=== PATIENT | female | born 1935 | race Caucasian/White ===

== ENCOUNTER 2018-04-09 14:24 | Emergency (ER) | payer MEDICARE, OTHER ==
[~2018-04-09] VITALS: Ht 152.4 cm; Wt 68.0 kg
[~2018-04-09 14:24] MED LIST: ADULT LOW DOSE81 MG PO; B12; CALCIUM 500 +1 EACH PO; CENTRUM SILVER1 EAC4; CIPRO250 M1 PO; FLOMAX0.4 MG PO; FOSAMAX5 MG PO; KRILL OIL 3001 EACH; LIPITOR40 MG PO; LORTAB 5 MG/5001 TAB PO; MEDROLDOSEPACK PO; NORCO 5-325 TA1 EACH PO; PYRIDIUM200 MG PO; ZOFRAN ODT4 MG PO
[2018-04-09] MEDS ORDERED: ZOCOR20 MG PO (14:39)
[2018-04-09] MEDS ORDERED: AUGMENTIN 875-1 EACH PO (15:01)
[2018-04-09] MEDS ORDERED: MEDROLDOSEPACK PO (15:01)
[2018-04-09 15:38] VITALS: BP 139/94
== END 2018-04-09 15:39 | disposition home or self-care (01) ==
LOC: M.ERS 14:24
DX: T78.49XA Other allergy, initial encounter (principal); N39.0 Urinary tract infection, site not specified; E78.00 Pure hypercholesterolemia, unspecified; Z87.440 Personal history of urinary (tract) infections; Z88.1 Allergy status to other antibiotic agents; X58.XXXA Exposure to other specified factors, initial encounter

== ENCOUNTER → 2018-05-02 | Outpatient (CLI) | payer MEDICARE, OTHER ==
[~2018-05-02] MED LIST changes: +AUGMENTIN 875-1 EACH PO; +HYDROCODON-ACE1 EAC7 PO; +ZOCOR20 MG PO
== END ==
LOC: M.RAD 08:35
DX: M85.89 Other specified disorders of bone density and structure, multiple sites (principal); M81.0 Age-related osteoporosis without current pathological fracture; Z78.0 Asymptomatic menopausal state

== ENCOUNTER 2018-06-26 07:49 | Emergency (ER) | payer MEDICARE, OTHER ==
[~2018-06-26] VITALS: Ht 152.4 cm; Wt 64.0 kg
[~2018-06-26 07:49] MED LIST changes: -HYDROCODON-ACE1 EAC7 PO
[2018-06-26 10:19] LABS: ABSOLUTE BASOPHILS 0.1 thou/uL (0.0-0.2); ABSOLUTE EOSINOPHILS 0.1 thou/uL (0.0-0.7); ABSOLUTE LYMPHOCYTES 0.8 thou/uL (0.8-5.3); ABSOLUTE MONOCYTES 0.5 thou/uL (0.0-1.2); ABSOLUTE NEUTROPHILS 5.8 thou/uL (1.6-8.1); BASOPHILS 0.8 %; HEMATOCRIT 34.3 % (37.0-47.0); HEMOGLOBIN 11.9 gm/dL (12.0-15.0); LYMPHOCYTES 10.6 %; MCH 32.9 pg (26.0-34.0); MCHC 34.7 g/dL (28.0-37.0); MCV 94.8 fL (80.0-100.0); MONOCYTES 7.3 %; MPV 8.1 fl. (7.2-11.1); NUCLEATED RBCS 0 /100WBC; PLATELET COUNT* 213 thou/uL (150-400); POLYS 80.3 %; RBC 3.62 mil/uL (4.20-5.00); RDW-CV 12.9 % (10.5-14.5); WBC 7.2 thou/uL (4.0-11.0)
[2018-06-26 10:29] LABS: CALCIUM 8.3 mg/dL (8.5-10.1); CREATININE 1.1 mg/dL (0.6-1.3); POTASSIUM 4.1 mmol/L (3.5-5.1)
[2018-06-26 10:34] LABS: ALBUMIN 3.3 g/dL (3.4-5.0); TOTAL BILIRUBIN 0.3 mg/dL (<0.1-1.0); TOTAL PROTEIN 6.4 g/dL (6.4-8.2)
[2018-06-26] MEDS ORDERED: HYDROCODON-ACE1 EAC7 PO (13:28)
[2018-06-26 13:48] VITALS: BP 162/84
== END 2018-06-26 13:49 | disposition home or self-care (01) ==
LOC: M.ERS 07:49
PROVIDERS: Emergency Medicine
DX: S42.001A Fracture of unspecified part of right clavicle, initial encounter for closed fracture (principal); E78.00 Pure hypercholesterolemia, unspecified; Z88.1 Allergy status to other antibiotic agents; W18.39XA Other fall on same level, initial encounter; Y93.89 Activity, other specified; Y92.89 Other specified places as the place of occurrence of the external cause; Y99.8 Other external cause status

== ENCOUNTER 2019-10-29 19:00 | Observation (INO) | payer MEDICARE, OTHER ==
[~2019-10-29] VITALS: Ht 152.4 cm; Wt 68.7 kg
[~2019-10-29 19:00] MED LIST changes: +HYDROCODON-ACE1 EAC7 PO
[2019-10-29 19:10] VITALS: BP 189/99
[2019-10-29] MEDS ORDERED: MACROBID 100 M100 MG PO (19:12)
[2019-10-29 19:55] LABS: ABSOLUTE EOSINOPHILS 0.6 thou/uL (0.0-0.7); ABSOLUTE LYMPHOCYTES 0.7 thou/uL (0.8-5.3); ABSOLUTE MONOCYTES 0.7 thou/uL (0.0-1.2); ABSOLUTE NEUTROPHILS 4.6 thou/uL (1.6-8.1); BASOPHILS 0.7 %; EOSINOPHILS 8.5 %; HEMATOCRIT 37.5 % (37.0-47.0); HEMOGLOBIN 13.2 gm/dL (12.0-15.0); LYMPHOCYTES 10.8 %; MCHC 35.2 g/dL (28.0-37.0); MCV 93.9 fL (80.0-100.0); MPV 8.4 fl. (7.2-11.1); NUCLEATED RBCS 0 /100WBC; PLATELET COUNT* 206 thou/uL (150-400); WBC 6.6 thou/uL (4.0-11.0)
[2019-10-29 20:04] LABS: CALCIUM 9.9 mg/dL (8.5-10.1); CREATININE 1.4 mg/dL (0.6-1.3); POTASSIUM 3.7 mmol/L (3.5-5.1)
[2019-10-29 20:21] LABS: ALBUMIN 3.6 g/dL (3.4-5.0); TOTAL BILIRUBIN 0.5 mg/dL (<0.1-1.0)
[2019-10-29 20:36] LABS: URINE BILIRUBIN NEGATIVE (Negative); URINE BLOOD NEGATIVE (Negative); URINE CLARITY CLEAR; URINE COLOR YELLOW; URINE GLUCOSE-RANDOM NEGATIVE (Negative); URINE KETONES NEGATIVE (Negative); URINE LEUKOCYTES-REFLEX 1+ (Negative); URINE NITRITE-REFLEX NEGATIVE (Negative); URINE PROTEIN NEGATIVE (Negative); URINE SPECIFIC GRAVITY <= 1.005 (1.005-1.030); URINE UROBILINOGEN 0.2 E.U./dl (0.2-1.0)
[2019-10-29 21:40] LABS: CASTS None Seen /LPF (None Seen); SQUAMOUS 4-10 Moderate /LPF (0-3)
[2019-10-29 21:41] LABS: URINE RBC None Seen /HPF (0-2); URINE WBC-REFLEX 0-5 Rare /HPF (0-5)
[2019-10-29 21:42] LABS: BACTERIA-REFLEX 1-9 Few /HPF (None Seen); CRYSTALS None Seen /LPF (None Seen)
[2019-10-29 22:55] VITALS: BP 175/91
[2019-10-29 23:12] VITALS: BP 159/85
[2019-10-30] VITALS: BP 150/78
[2019-10-30] MEDS ORDERED: MULTI VITAMIN1 EACH PO (00:14)
[2019-10-30] MEDS ORDERED: OMEGA 3 500 SO1 EACH PO (00:15)
[2019-10-30] MEDS ORDERED: CALTRATE 600 +1 EAC1 PO (00:17)
[2019-10-30 04:00] VITALS: BP 157/88
--- NOTE | 2019-10-30 06:21 | NUR ---
REPORT RECIEVED FROM ER. PT ORIENTED TO ROOM, CALL LIGHT SHOWN, FALL AGREEMENT GONE OVER, PT STATED UNDERSTANDING. ADMISSION DOCUMENTED. MED REC COMPLETED. PT REPORTS PAIN HAS RESOLVED. IV PATENT. WILL CONTINUE WITH PLAN OF CARE.
[2019-10-30 08:14] VITALS: BP 161/83
--- NOTE | 2019-10-30 11:47 | NUR ---
VSS, ASSUMED CARE IN THE AM, ASSESSMENT PERFORMED AND CHARTED, FALL PRECAUTIONS IN PLACE AND CALL LIGHT IN REACH, PT IS UP AD OK AND DENIES ANY PAIN, SHE IS TRACING SR ON THE MONITOR, ON RA, PT GOAL IS TO DISCHARGE TO HOME ON DAY OF CARE, AT THIS TIME PT HAS BEEN GIVEN DISCHARGE ORDERS, D/C PAPERS PROVITED, IV AND TELE MONITOR, WILL FOLLOW WITH PLAN OF CARE.
[2019-10-30] MEDS ORDERED: CEFUROXIME500 MG PO (12:48)
[2019-10-30 12:49] VITALS: BP 161/83
--- NOTE | 2019-10-31 12:46 | EKG ---
[place] [address] ELECTROCARDIOGRAM REPORT Name: BRONWYN FELDMAN Room: [address]#: [id number] Admission: 10/29/19 Attend Phys: Isai Carey MD Discharge: 10/30/19 Date of : 33 Report #: [id number] THIS REPORT FOR: //name// [facility] ED Test Date: 2019-10-29 Test Time: 19:07:58 Pat Name: BRONWYN FELDMAN Department: Room: [facility] Gender: F Drapery Worker: : 1935 Requested By: Joelle Moreno Order Number: [id number] MD: Mesfin Jorge Measurements Intervals [place] Rate: 74 P: 19 ND: 159 QRS: -20 QRSD: 93 T: 8 QT: 371 QTc: 412 Interpretive Statements Sinus rhythm Inferior infarct, old Anterior infarction, old Compared to ECG 08/17/2010 14:54:54 Myocardial infarct finding now present Left ventricular hypertrophy now present Q waves now present T-wave abnormality no longer present Electronically Signed On 10-31-2019 12:45:27 [employer] by Mesfin Jorge [email or web address] <ELECTRONICALLY SIGNED> By: Mesfin Jorge MD, FACC 10/31/19 1245 06 06 Mesfin Jorge MD, FAC /EPI
--- NOTE | 2019-11-01 13:56 | CON ---
[address] [address] CONSULTATION Name: BRONWYN FELDMAN Room: [address] Patsy Rodriguez#: [id number] Admission: 10/29/19 Attend Phys: Isai Carey MD Discharge: 10/30/19 Date of : 33 Report #: [id number] THIS REPORT FOR: //name// CC: Isai Patiño MD DATE OF SERVICE: 10/30/2019 CARDIOLOGY CONSULTATION HISTORY OF PRESENT ILLNESS: The patient is an 84-year-old white female, who I was asked to see in the hospital after she complained of chest pain. The patient has a long history of heart murmur. She actually had an echocardiogram performed 2 years ago here at [facility] that showed ejection fraction normal, mild aortic insufficiency. Previous nuclear stress test in 2016 here at [facility] showed no evidence of ischemia with an ejection fraction of 79%. She stays fairly active, walking her dogs. Recently, she apparently had a urinary tract infection and was placed on antibiotic. She notes that every time she took the antibiotic; however, for a couple of hours after that she developed a pain on the left side of her face and in her chest. It gradually resolved. However, she took the antibiotic again. She again developed some discomfort on the left side of her face and chest. The pain was not related to food or activity. There is no associated shortness of breath, diaphoresis. She denied any rash, diarrhea. She denies any history of exertional dyspnea, palpitations, syncope, peripheral edema. PAST MEDICAL HISTORY: Significant for toe surgery, knee surgery. She has no history of hypertension, diabetes, hyperlipidemia. MEDICATIONS: She apparently is on no medications at this time. ALLERGIES: SHE HAS AN ALLERGY TO CIPRO. FAMILY HISTORY: Diabetes runs in the family. SOCIAL HISTORY: She is . She and her live in [place]. No smoking or alcohol abuse. REVIEW OF SYSTEMS: She apparently had a colostomy in the past following surgery for diverticular disease. She has had knee surgery. No stroke. No asthma. No GI bleeding. No liver disease. No kidney disease. No cancer. No psychiatric illness. PHYSICAL EXAMINATION: GENERAL: Revealed an elderly female lying in bed. [place] [address] CONSULTATION Name: BRONWYN FELDMAN Room: [address] Patsy Rodriguez#: [id number] Admission: 10/29/19 Attend Phys: Isai Carey MD Discharge: 10/30/19 Date of : 33 Report #: [id number] VITAL SIGNS: She had a blood pressure of 150/80, pulse 60. She is afebrile. HEENT: She was anicteric. Conjunctivae pink. Mucous membranes moist. NECK: Veins are nondistended. CHEST: Clear to auscultation. CARDIOVASCULAR: Regular rate and rhythm, grade 2 systolic ejection murmur along the sternal border. ABDOMEN: Soft. EXTREMITIES: Had no edema. Dorsalis pedis pulse 3+ bilaterally. SKIN: Warm, dry. NEUROLOGIC: Nonfocal. LYMPH: No adenopathy. MUSCULOSKELETAL: No joint effusion. RADIOLOGICAL DATA: Her ECG showed a sinus rhythm, nonspecific ST-segment changes, poor R-wave progression. Her x-rays in the Emergency Room last night, she had portable chest x-ray that showed no acute abnormality, small hiatal hernia. LABORATORY DATA: Sodium 138, BUN 26, creatinine 1.4. Troponins ____ 0.06. BNP 282. Her white blood cell count was 6.6, hemoglobin 13.2. Her D-dimer was 0.79. IMPRESSION AND RECOMMENDATIONS: 1. Chest pressure. Atypical for angina. Recommend no further cardiac evaluation. 2. History of heart murmur. 3. Recent urinary tract infection. <ELECTRONICALLY SIGNED> By: Mesfin Jorge MD, FACC 11/01/19 1356 1205 1234Dfilippo Jorge MD, FACC /nt
== END 2019-10-30 13:24 | disposition home or self-care (01) ==
LOC: M.ERS 19:00 → M.TBA-ER 21:51 → M.2W 21:51
PROVIDERS: Nurse Practitioner Family; ADMIT Internal Medicine
DX: R07.89 Other chest pain (principal); R42 Dizziness and giddiness; R51 Headache; R10.9 Unspecified abdominal pain; I10 Essential (primary) hypertension; N39.0 Urinary tract infection, site not specified; E78.5 Hyperlipidemia, unspecified

== ENCOUNTER 2019-11-08 09:19 | Emergency (ER) | payer MEDICARE, OTHER ==
[~2019-11-08] VITALS: Ht 152.4 cm; Wt 65.8 kg
[~2019-11-08 09:19] MED LIST changes: +CALTRATE 600 +1 EAC1 PO; +CEFUROXIME500 MG PO; +MACROBID 100 M100 MG PO; +MULTI VITAMIN1 EACH PO; +OMEGA 3 500 SO1 EACH PO
[2019-11-08 10:07] LABS: BASOPHILS 0.5 %; EOSINOPHILS 2.2 %; HEMATOCRIT 35.1 % (37.0-47.0); HEMOGLOBIN 12.1 gm/dL (12.0-15.0); LYMPHOCYTES 8.3 %; MCH 32.1 pg (26.0-34.0); MCHC 34.5 g/dL (28.0-37.0); MCV 92.9 fL (80.0-100.0); MONOCYTES 7.6 %; MPV 7.6 fl. (7.2-11.1); PLATELET COUNT* 235 thou/uL (150-400); POLYS 81.4 %; RBC 3.78 mil/uL (4.20-5.00); RDW-CV 12.9 % (10.5-14.5); WBC 12.3 thou/uL (4.0-11.0)
[2019-11-08 10:08] LABS: ABSOLUTE BASOPHILS 0.1 thou/uL (0.0-0.2); ABSOLUTE EOSINOPHILS 0.3 thou/uL (0.0-0.7); ABSOLUTE MONOCYTES 0.9 thou/uL (0.0-1.2); NUCLEATED RBCS 0 /100WBC
[2019-11-08 10:20] LABS: CALCIUM 8.2 mg/dL (8.5-10.1); CREATININE 1.2 mg/dL (0.6-1.3); POTASSIUM 3.5 mmol/L (3.5-5.1)
[2019-11-08 10:24] LABS: TOTAL BILIRUBIN 0.3 mg/dL (<0.1-1.0); TOTAL PROTEIN 6.7 g/dL (6.4-8.2)
[2019-11-08 11:40] LABS: URINE BILIRUBIN NEGATIVE (Negative); URINE BLOOD TRACE (Negative); URINE CLARITY CLEAR; URINE COLOR YELLOW; URINE GLUCOSE-RANDOM NEGATIVE (Negative); URINE KETONES NEGATIVE (Negative); URINE LEUKOCYTES-REFLEX NEGATIVE (Negative); URINE NITRITE-REFLEX NEGATIVE (Negative); URINE PROTEIN NEGATIVE (Negative); URINE UROBILINOGEN 0.2 E.U./dl (0.2-1.0)
[2019-11-08 12:13] VITALS: BP 148/70
== END 2019-11-08 12:14 | disposition home or self-care (01) ==
LOC: M.ERS 09:19
PROVIDERS: Personal Emergency Response Attendant
DX: R19.7 Diarrhea, unspecified (principal); R31.9 Hematuria, unspecified; R10.32 Left lower quadrant pain; E78.00 Pure hypercholesterolemia, unspecified; Z88.1 Allergy status to other antibiotic agents

== ENCOUNTER → 2020-09-22 | Outpatient (CLI) | payer MEDICARE, OTHER ==
--- NOTE | 2020-09-22 11:26 | 2DMMODE ---
[place] [address] 2 D/M-MODE ECHOCARDIOGRAM Name: FELDMANBRONWYN Room: [facility]#: [id number] Admission: 09/22/20 Attend Phys: Mesfin Jorge MD Discharge: Date of : 33 Date of Service: 09/22/20 1126 Report #: [id number] THIS REPORT FOR: cc: Sera Patiño MD, Katrina MD Liston, Michael J. MD [facility] ~ APPROVED REPORT Study performed: 09/22/2020 10:02:28 EXAM: Comprehensive 2D, Doppler, and color-flow Echocardiogram Patient Location: Out-Patient BSA: 1.67 HR: 71 bpm BP: 130/80 mmHg Other Information Study Quality: Good Indications Aortic Valve Disease 2D Dimensions IVSd: 9.57 (7-11mm) LVOT Diam: 20.93 (18-24mm) LVDd: 45.27 mm PWd: 7.75 (7-11mm) Ascending Ao: 35.02 (22-36mm) LVDs: 31.30 (25-40mm) Aortic Root: 23.97 mm Volumes Left Atrial Volume (Systole) LA ESV Index: 21.00 mL/m2 Aortic Valve AoV Peak Heber.: 1.61 m/s AO Peak Gr.: 10.33 mmHg LVOT Max P.33 mmHg AO Mean Gr.: 5.67 mmHg LVOT Mean P.23 mmHg LVOT Max V: 0.76 m/s AO V2 VTI: 28.74 cm LVOT Mean V: 0.52 m/s LANA (VTI): 2.12 cm2 LVOT V1 VTI: 17.75 cm AI Hernando: 1.88 m/s2 AI PHT: 780.82 [place] [address] 2 D/M-MODE ECHOCARDIOGRAM Name: BRONWYN FELDMAN Room: [facility]#: [id number] Admission: 09/22/20 Attend Phys: Mesfin Jorge MD Discharge: Date of : 33 Date of Service: 09/22/20 1126 Report #: [id number] Mitral Valve E/A Ratio: 0.63 MV Decel. Time: 306.65 ms MV E Max Heber.: 0.60 m/s MV PHT: 88.93 ms MVA (PHT): 2.47 cm2 TDI E/Lateral E': 7.50 E/Medial E': 15.00 Medial E' Heber.: 0.04 m/s Lateral E' Heber.: 0.08 m/s Pulmonary Valve PV Peak Heber.: 0.73 m/s PV Peak Gr.: 2.15 mmHg Tricuspid Valve RAP Estimate: 5.00 mmHg TR Peak Gr.: 17.99 mmHg RVSP: 22.99 mmHg PA Pressure: 22.99 mmHg Left Ventricle The left ventricle is normal size. There is normal LV segmental wall motion. There is normal left ventricular wall thickness. Left ventricular systolic function is normal. LVEF is 55-60%. Grade I - abnormal relaxation pattern. Right Ventricle The right ventricle is normal size. The right ventricular systolic function is normal. Atria Left atrium is mildly dilated. The right atrium size is normal. Aortic Valve Moderate aortic valve sclerosis. Mild aortic regurgitation. Mild aortic stenosis. Mitral Valve Mild mitral annular calcification. Mild mitral regurgitation. No evidence of mitral valve stenosis. Tricuspid Valve The tricuspid valve is normal in structure. Mild tricuspid regurgitation[place] [address] 2 D/M-MODE ECHOCARDIOGRAM Name: FELDMANBRONWYN Room: [facility]#: [id number] Admission: 09/22/20 Attend Phys: Mesfin Jorge MD Discharge: Date of : 33 Date of Service: 09/22/20 1126 Report #: [id number] Pulmonic Valve The pulmonary valve is normal in structure. Mild pulmonic regurgitation. Great Vessels The aortic root is normal in size. IVC is normal in size and collapses >50% with inspiration. Pericardium There is no pericardial effusion. <Conclusion> The left ventricle is normal size. There is normal left ventricular wall thickness. Left ventricular systolic function is normal. LVEF is 55-60%. Grade I - abnormal relaxation pattern. Left atrium is mildly dilated. Moderate aortic valve sclerosis. Mild aortic regurgitation. Mild aortic stenosis. Mild mitral annular calcification. Mild mitral regurgitation. Mild tricuspid regurgitation. No pulmonary hypertension. Mild pulmonic regurgitation. IVC is normal in size and collapses >50% with inspiration. <ELECTRONICALLY SIGNED> By: Dae Gregg MD, FACC 09/22/20 1126 25 112 Dae Gregg MD, FACC /INF
== END ==
LOC: M.CRD 09:55
PROVIDERS: ATTEND Internal Medicine Cardiovascular Disease
DX: I08.8 Other rheumatic multiple valve diseases (principal)

== ENCOUNTER → 2020-11-10 | Outpatient (CLI) | payer MEDICARE, OTHER ==
[2020-11-10 10:21] LABS: CALCIUM 9.3 mg/dL (8.5-10.1); CREATININE 1.1 mg/dL (0.6-1.3); POTASSIUM 4.4 mmol/L (3.5-5.1)
== END ==
LOC: M.LAB 09:48
PROVIDERS: ATTEND Nurse Practitioner
DX: I10 Essential (primary) hypertension (principal)

== ENCOUNTER 2021-06-05 06:47 | Emergency (ER) | payer MEDICARE, OTHER ==
[~2021-06-05] VITALS: Ht 152.4 cm; Wt 63.5 kg
[2021-06-05] MEDS ORDERED: TESSALON PERLE100 M1 PO (08:24)
[2021-06-05 08:37] VITALS: BP 148/95
== END 2021-06-05 08:38 | disposition home or self-care (01) ==
LOC: M.ERS 06:47
DX: U07.1 COVID-19 (principal); Z88.1 Allergy status to other antibiotic agents; E78.00 Pure hypercholesterolemia, unspecified; Z98.890 Other specified postprocedural states

== ENCOUNTER 2021-08-02 16:03 | Emergency (ER) | payer MEDICARE, OTHER ==
[~2021-08-02] VITALS: Ht 152.4 cm; Wt 63.5 kg
[~2021-08-02 16:03] MED LIST changes: +TESSALON PERLE100 M1 PO
[2021-08-02] MEDS ORDERED: COZAAR 25 MG TA25 M1 PO (16:45)
[2021-08-02] MEDS ORDERED: [UNRECOGNIZED DRUG - CODE] PO (16:46)
[2021-08-02] MEDS ORDERED: CENTRUM SILVER1 EAC5 PO (16:47)
[2021-08-02] MEDS ORDERED: VITAMIN D3-CAL1 EACH PO (16:47)
[2021-08-02] MEDS ORDERED: CRANBERRY500 M2 PO (16:47)
[2021-08-02] MEDS ORDERED: HYDROCODON-ACE1 EAC7 PO (17:50)
[2021-08-02] MEDS ORDERED: ZANAFLEX4 MG PO (17:50)
[2021-08-02 17:57] VITALS: BP 134/72
--- NOTE | 2021-08-03 13:50 | EKG ---
[place] [address] ELECTROCARDIOGRAM REPORT Name: BRONWYN FELDMAN Room: [facility]#: [id number] Admission: 08/02/21 Attend Phys: Discharge: 08/02/21 Date of : 33 Date of Service: 08/02/21 1726 Report #: [id number] THIS REPORT FOR: //name// [facility] ED Test Date: 2021-08-02 Test Time: 17:26:49 Pat Name: BRONWYN FELDMAN Department: Room: Gender: Refinisher: : 1935 Requested By: Joelle Moreno Order Number: [id number] MD: Mesfin Jorge Measurements Intervals [place] Rate: 71 P: 14 SC: 155 QRS: -27 QRSD: 92 T: -7 QT: 372 QTc: 405 Interpretive Statements Sinus rhythm Left ventricular hypertrophy Inferior infarct, old Anterior infarct, old Compared to ECG 10/29/2019 19:07:58 Left ventricular hypertrophy now present Myocardial infarct finding still present Electronically Signed On 08-03-2021 13:50:31 CDT by Mesfin Jorge [email or web address] <ELECTRONICALLY SIGNED> By: Mesfin Jorge MD, [facility] 08/03/21 1350 1726 1726 Mesfin Jorge MD, [facility] /EPI
== END 2021-08-02 17:58 | disposition home or self-care (01) ==
LOC: M.ERS 16:03
DX: S22.080A Wedge compression fracture of T11-T12 vertebra, initial encounter for closed fracture (principal); E78.00 Pure hypercholesterolemia, unspecified; Z79.899 Other long term (current) drug therapy; Z88.1 Allergy status to other antibiotic agents; X58.XXXA Exposure to other specified factors, initial encounter; Y93.9 Activity, unspecified; Y92.89 Other specified places as the place of occurrence of the external cause; Y99.8 Other external cause status